=== PATIENT | male | born 1950 | race Caucasian/White ===

== ENCOUNTER 2021-07-01 07:25 | Inpatient (IN) | payer MEDICARE, OTHER ==
[~2021-07-01] VITALS: Ht 172.7 cm; Wt 63.5 kg
[2021-07-01 08:52] LABS: HEMOGLOBIN. 9.2 g/dL (14.0-18.0); MEAN CORPUSCULAR HEMOGLOBIN 25.5 pg (28.0-32.0); MEAN CORPUSCULAR VOLUME 77.4 fL (80.0-94.0); MEAN PLATELET VOLUME 8.5 fl (7.4-10.4); PLATELET 261 x1000/uL (130-400); RED BLOOD CELL COUNT 3.61 mill/uL (4.7-6.1); RED CELL DISTRIBUTION WIDTH 16.5 % (11.6-14.6)
[2021-07-01 08:58] LABS: CHLORIDE 107 mEq/L (98-107)
[2021-07-01 09:04] LABS: ETHANOL BLOOD < 10 mg/dL
[2021-07-01 09:20] LABS: CLARITY URINE CLEAR (CLEAR); COLOR URINE YELLOW (YELLOW); KETONES URINE NEGATIVE (NEGATIVE); LEUKOCYTE ESTERASE URINE NEGATIVE (NEGATIVE); NITRITE URINE NEGATIVE (NEGATIVE); OCCULT BLOOD URINE 1+ (NEGATIVE); PH URINE 5.5 (4.5-8.0); PROTEIN URINE TRACE (NEGATIVE); SPECIFIC GRAVITY URINE 1.026 (1.005-1.030); UROBILINOGEN URINE 0.2 E.U./dL (0.2-1.0)
[2021-07-01 09:29] LABS: PLATELET ESTIMATE NORMAL
[2021-07-01 09:33] LABS: *AMPHETAMINES SCREEN URINE NEGATIVE (NEGATIVE); *BARBITURATES SCREEN URINE NEGATIVE (NEGATIVE); *COCAINE SCREEN URINE NEGATIVE (NEGATIVE); METHADONE URINE SCREEN NEGATIVE (NEGATIVE); OPIATES URINE SCREEN NEGATIVE (NEGATIVE); PHENCYCLIDINE URINE SCREEN NEGATIVE (NEGATIVE)
[2021-07-01 09:34] LABS: *BENZODIAZEPINES SCREEN URINE NEGATIVE (NEGATIVE); CANNABINOID URINE SCREEN NEGATIVE (NEGATIVE)
[2021-07-01] MEDS ORDERED: IOHEXOL-350 100 ML BOTTLE ONE (09:46)
[2021-07-01] MEDS ORDERED: ASPIRIN 325MG EC TABLET PO ONE (11:00)
[2021-07-01 18:21] VITALS: BP 169/94
[2021-07-01] MEDS ORDERED: REPA0.5T5 PO (18:50)
[2021-07-01] MEDS ORDERED: ATOR-2 PO (18:50)
[2021-07-01] MEDS ORDERED: NIFE90TA60 PO (18:50)
[2021-07-01] MEDS ORDERED: [UNRECOGNIZED DRUG - CODE] PO (18:50)
[2021-07-01] MEDS ORDERED: PANT40TA51 PO (18:50)
[2021-07-01] MEDS ORDERED: ZOLPIDEM TARTRATE 5MG TABLET PO PRN (19:00)
[2021-07-01] MEDS ORDERED: DIPHENHYDRAMINE 50MG/ML VIAL IV PRN (19:00)
[2021-07-01] MEDS ORDERED: ACETAMINOPHEN 325MG TABLET PO PRN ×2 (19:00)
[2021-07-01] MEDS ORDERED: ONDANSETRON HCL 4MG/2ML INJ IV PRN (19:00)
[2021-07-01] MEDS ORDERED: DEXTROSE 50% WATER 50ML SYRINGE IV PRN (19:00)
[2021-07-01] MEDS ORDERED: MAGNESIUM/ALUMINUM HYDROXIDE/SIMETHICONE 30ML UDC PO PRN (19:00)
[2021-07-01] MEDS ORDERED: TRAMADOL 50MG TABLET PO PRN (19:00)
[2021-07-01] MEDS ORDERED: CLONIDINE 0.1MG TABLET PO PRN (19:00)
[2021-07-01] MEDS: INSULIN LISPRO 100 UNITS/ML SUBCUT SCH (21:00)
[2021-07-01] MEDS ORDERED: ATORVASTATIN CALCIUM 20MG TABLET PO SCH (21:00)
[2021-07-01] MEDS: ENOXAPARIN 40MG/0.4ML SYR SUBCUT SCH (21:06)
[2021-07-01] MEDS: AMLODIPINE 5MG TABLET PO SCH (21:07)
[2021-07-01] MEDS: BLOOD SUGAR DIAGNOSTIC STRIP TEST SCH (21:25)
[2021-07-01] MEDS: SODIUM CHLORIDE 0.9% INJ 3ML FLUSH IVF SCH (21:28)
[2021-07-02] VITALS: BP 152/92
[2021-07-02 06:00] VITALS: BP 155/87
[2021-07-02] MEDS: SODIUM CHLORIDE 0.9% INJ 3ML FLUSH IVF SCH ×3 (06:29→21:31)
[2021-07-02] MEDS: BLOOD SUGAR DIAGNOSTIC STRIP TEST SCH ×4 (07:01→21:31)
[2021-07-02 08:00] VITALS: BP 168/92
[2021-07-02] MEDS: INSULIN LISPRO 100 UNITS/ML SUBCUT SCH ×4 (08:10→21:34)
[2021-07-02] MEDS: AMLODIPINE 5MG TABLET PO SCH (08:48)
[2021-07-02] MEDS: ASPIRIN 81MG EC TABLET PO SCH (08:48)
[2021-07-02 12:00] VITALS: BP 157/88
[2021-07-02 16:00] VITALS: BP 150/82
[2021-07-02] MEDS ORDERED: INSU100I28 SQ (16:20)
[2021-07-02] MEDS ORDERED: CHOL200016 PO (16:23)
[2021-07-02] MEDS ORDERED: FERR325T6 MT (16:24)
[2021-07-02] MEDS: REPAGLINIDE 0.5MG TABLET PO SCH (18:33)
[2021-07-02 20:00] VITALS: BP 161/81
[2021-07-02 20:59] LABS: TOTAL IRON BINDING CAPACITY 282 ug/dL (250-450)
[2021-07-02] MEDS ORDERED: AMLODIPINE 5MG TABLET PO SCH (21:00)
[2021-07-02] MEDS: PANTOPRAZOLE 40MG DR TABLET PO SCH (21:30)
[2021-07-02] MEDS: ATORVASTATIN CALCIUM 40MG TABLET PO SCH (21:30)
[2021-07-02] MEDS: ENOXAPARIN 40MG/0.4ML SYR SUBCUT SCH (21:30)
[2021-07-02] MEDS: INSULIN GLARGINE UD 100 UNITS/ML SYR SUBCUT SCH (22:42)
[2021-07-03] VITALS: BP 158/83
[2021-07-03 04:00] VITALS: BP 125/69
[2021-07-03] MEDS: SODIUM CHLORIDE 0.9% INJ 3ML FLUSH IVF SCH ×3 (05:43→22:00)
[2021-07-03] MEDS: INSULIN LISPRO 100 UNITS/ML SUBCUT SCH ×4 (07:13→20:08)
[2021-07-03] MEDS: BLOOD SUGAR DIAGNOSTIC STRIP TEST SCH ×4 (07:13→20:08)
[2021-07-03] MEDS: PANTOPRAZOLE 40MG DR TABLET PO SCH ×2 (07:43→20:27)
[2021-07-03 08:00] VITALS: BP 138/73
[2021-07-03] MEDS: CHOLECALCIFEROL (D3) 1000 UNIT TABLET PO SCH (08:54)
[2021-07-03] MEDS: NIFEDIPINE XL 90MG TAB PO SCH (08:55)
[2021-07-03] MEDS: FERROUS SULFATE 325MG TABLET PO SCH (08:55)
[2021-07-03] MEDS: ASPIRIN 81MG EC TABLET PO SCH (08:55)
[2021-07-03] MEDS: REPAGLINIDE 0.5MG TABLET PO SCH ×3 (08:55→18:37)
[2021-07-03] MEDS ORDERED: NIFEDIPINE XL 60MG TAB PO SCH (09:00)
[2021-07-03 12:00] VITALS: BP 133/70
[2021-07-03] MEDS ORDERED: IRON SUCROSE COMPLEX 100 MG/5 ML ML IV NR (12:00)
[2021-07-03 16:00] VITALS: BP 131/74
[2021-07-03] MEDS: ATORVASTATIN CALCIUM 40MG TABLET PO SCH (20:27)
[2021-07-03] MEDS: ENOXAPARIN 40MG/0.4ML SYR SUBCUT SCH (20:28)
[2021-07-03 20:53] VITALS: BP 140/81
[2021-07-03] MEDS: INSULIN GLARGINE UD 100 UNITS/ML SYR SUBCUT SCH (22:00)
[2021-07-04] VITALS: BP 138/79
[2021-07-04 04:00] VITALS: BP 144/69
[2021-07-04] MEDS: INSULIN LISPRO 100 UNITS/ML SUBCUT SCH ×2 (05:58→12:38)
[2021-07-04] MEDS: SODIUM CHLORIDE 0.9% INJ 3ML FLUSH IVF SCH (05:58)
[2021-07-04] MEDS: BLOOD SUGAR DIAGNOSTIC STRIP TEST SCH ×2 (05:58→11:56)
[2021-07-04 08:00] VITALS: BP 122/80
[2021-07-04] MEDS ORDERED: FAMOTIDINE 20MG TABLET PO SCH (09:00)
[2021-07-04] MEDS: CHOLECALCIFEROL (D3) 1000 UNIT TABLET PO SCH (09:05)
[2021-07-04] MEDS: REPAGLINIDE 0.5MG TABLET PO SCH ×2 (09:05→12:44)
[2021-07-04] MEDS: FERROUS SULFATE 325MG TABLET PO SCH (09:06)
[2021-07-04] MEDS: NIFEDIPINE XL 90MG TAB PO SCH (09:06)
[2021-07-04] MEDS: ASPIRIN 81MG EC TABLET PO SCH (09:06)
[2021-07-04 12:00] VITALS: BP 157/85
[2021-07-04 12:06] VITALS: BP 157/85
[2021-07-04 13:59] VITALS: BP 157/85
== END 2021-07-04 14:45 | disposition home or self-care (01) | DRG 69 ==
LOC: ER 07:51 → EDBEDREQTM 11:47 → EDBEDREQ 11:47 → ENRESERV 16:07 → 7WST 18:12
PROVIDERS: ADMIT Internal Medicine; ATTEND Internal Medicine
PROC: 5A0935A Assistance with Respiratory Ventilation, Less than 24 Consecutive Hours, High Flow/Velocity Cannula (ICD-10-PCS; principal; 2021-07-03)
DX: G45.9 Transient cerebral ischemic attack, unspecified (principal); U07.1 COVID-19; I69.354 Hemiplegia and hemiparesis following cerebral infarction affecting left non-dominant side; D64.9 Anemia, unspecified; E11.9 Type 2 diabetes mellitus without complications; R47.81 Slurred speech; I10 Essential (primary) hypertension
CPT/HCPCS: 36415; 70496; 70498; 71045; 80053; 80305; 80320; 81003; 82962; 83036; 83540; 83550; 84484; 85025; 87426; 93005; 97116; 97162; 97166; 99291; J1650; J1815; Q9967; U0003; U0005; G0480